=== PATIENT | male | born 1990 | race Caucasian/White ===

== ENCOUNTER 2020-09-24 15:37 | Outpatient (CLI) | payer OTHER ==
--- NOTE | 2020-09-24 18:00 | ULT ---
RENAL ULTRASOUND: History: Acute renal failure. FINDINGS: Both kidneys measure approximately 10 cm in length. No hydronephrosis. Cortical thickness and cortica l echogenicity appears normally preserved. Urinary bladder is distended and appears unremarkable. IMPRESSION: Unremarkable renal ultrasound. POS: [facility]
== END 2020-09-24 15:38 | disposition home or self-care (01) ==
LOC: BICULT 15:37
PROVIDERS: ATTEND Internal Medicine Nephrology
DX: N17.9 Acute kidney failure, unspecified (principal)
CPT/HCPCS: 76770